=== PATIENT | female | born 1965 | race Caucasian/White ===

== ENCOUNTER 2017-01-29 07:50 | Day surgery (SDC) | payer BC ==
[~2017-01-29 07:50] MED LIST: ACETAMINOPHEN 1,000 MG/100 ML BTL IV ONE
[2017-01-29] MEDS ORDERED: ONDANSETRON HCL IV 4 MG/2 ML VIAL IVP ONE (14:00)
[2017-01-29] MEDS ORDERED: LIDOCAINE 2% MDV (20MG/ML) 20ML VIAL IV ONE (14:00)
[2017-01-29] MEDS ORDERED: MIDAZOLAM HCL 2MG/2ML VIAL IV ONE (14:00)
[2017-01-29] MEDS ORDERED: SEVOFLURANE 250 ML INH ONE (14:00)
[2017-01-29] MEDS ORDERED: ROPIVACAINE HCL (NAROPIN) /PF 5MG/ML 20ML VIAL IV ONE ×2 (14:00→14:07)
[2017-01-29] MEDS ORDERED: PROPOFOL 10 MG/ML VIAL IV ONE (14:00)
[2017-01-29] MEDS ORDERED: FENTANYL PF 100MCG/2ML VIAL IV ONE (14:00)
[2017-01-29] MEDS ORDERED: KETOROLAC 30 MG/ML VIAL IVP ONE (14:00)
--- NOTE | 2017-02-03 16:44 | Operative Note ---
DATE OF SURGERY: 01/29/2017 Surgeon: Keith Cheema D.O. REFERRING PHYSICIAN: Harpreet Brown D.O. PREOPERATIVE DIAGNOSES: 1. Carpal tunnel syndrome of the right wrist. 2. Trigger thumb right thumb. POSTOPERATIVE DIAGNOSES: 1. Carpal tunnel syndrome of the right wrist. 2. Trigger thumb right thumb. OPERATION: Decompression right median nerve at the wrist using 2.5 loupe magnification and tenotomy A1 michelet right thumb. PROCEDURE: This 51-year-old female was taken to the Operating Room, placed in the supine position on the operating room table. General anesthesia was induced and the right upper extremity was elevated. It was prepped with Hibiclens and draped in the usual sterile fashion. It was exsanguinated and the tourniquet inflated to 250 mmHg. Incision was made in the flexor crease of the MCP joint and dissected down through the skin and subcutaneous tissue. Hemostasis obtained with the electrocautery. The neurovascular bundles were protected. The proximal edge of the A1 michelet easily identified and it was split from its proximal to its distal margin under direct vision. The flexor pollicis longus did demonstrate some mild scuffing but the tendon obviously is still intact. Mild nodularity of the tendon also identified. Once it had been completely decompressed, the thumb was flexed and extended and no catching or locking was identified. The wound was irrigated with lactated Ringer solution and closed with interrupted 6- 0 Nylon suture. We then directed our attention to the carpal tunnel and an incision was made from the base of the webspace of the thumb to the flexor crease of the wrist following the hypothenar crease. Dissection carried down through the skin and subcutaneous tissue. Hemostasis was obtained with the electrocautery. The palmar fascia was divided in line with the skin incision. We then were able to visualize the flexor retinaculum. A hole was punctured in it and it was split to its proximal margin. With the contents of the carpal ligament under direct vision, the transverse carpal ligament was transected along its ulnar border and the radial flap was raised to exposure the entire median nerve under the transverse carpal ligament. Recurrent motor branch of the median nerve was identified and found to be normal. The wound was then irrigated and the tourniquet released and hemostasis obtained with the electrocautery, and the wound closed with interrupted 6-0 Nylon suture. Sterile dressings were applied and the patient was taken to the Recovery Room in satisfactory condition. GROSS PATHOLOGY: This patient demonstrated mild hyperemia and hourglass deformity of the median nerve. There was mild scuffing of the flexor pollicis longus tendon, mild nodularity also being identified. MTDD
== END 2017-01-29 10:55 | disposition home or self-care (01) ==
LOC: SUR 07:50
PROVIDERS: ATTEND Orthopaedic Surgery
DX: G56.01 Carpal tunnel syndrome, right upper limb (principal); M65.311 Trigger thumb, right thumb; I10 Essential (primary) hypertension
CPT/HCPCS: 26055; 64721; 01810; 64450; J1885; J2405; J3010; J2795; 01992; 76942

== ENCOUNTER 2017-07-31 12:17 | Emergency (ER) | payer BC ==
[2017-07-31] MEDS ORDERED: PROPARACAINE HCL OPTH 15ML BTL OPTH ONE (12:21)
--- NOTE | 2017-07-31 12:28 | Emergency Department Record ---
History of Present Illness - General Chief complaint: Eye Problem Stated complaint: SOMETHING IN RIGHT EYE Time Seen by Provider: 07/31/17 12:28 Source: Patient Mode of Arrival: Ambulatory Limitations: No limitations - History of Present Illness Initial comments: The patient is here due to feeling pain in her R eye for about 5 hours. The onset was this AM when she noticed a feeling of a FB sensation to the R eye. The pain progressively got worse during the day and now is much worse with blinking. She denies any trauma, injury, nasal drainage, recent illnesses, or contact lens use. She has been using drops and rubbing her eye a lot this AM. chief complaint: Eye pain Onset/Timin -: Hour(s) Onset Description: Sudden Location: Right eye Associated Symptoms: None Treatments Prior to Arrival: None - Related Data Visual acuity (L) = 20/: 50 Visual acuity (R) = 20/: 20 With correction: Yes Home Medications Medication Instructions Recorded Confirmed Last Taken Bupropion HCl [Wellbutrin Xl] 300 mg PO DAILY 07/31/17 07/31/17 07/30/17 Allergies Allergy/AdvReac Type Severity Reaction Status Date / Time meperidine Allergy Unknown Unverified 12/23/16 14:03 morphine Allergy Unknown Unverified 12/23/16 14:03 Travel Screening - Travel/Exposure Within Last 30 Days Have you traveled within the last 30 days?: No - Travel/Exposure Within Last Year Have you traveled outside the [place] in the last year?: No - Additonal Travel Details Have you been exposed to anyone with a communicable illness?: No - Travel Symptoms Symptom Screening: None Past Medical History - SOCIAL HISTORY Smoking Status: Never smoker Alcohol Use: None Drug Use: None - RESPIRATORY Hx Respiratory Disorders: No Comment:: STREP THROAT 3 WEEKS AGO - CARDIOVASCULAR Hx Hypertension: Yes (CONTROLLED WITH MEDS) - NEURO Hx Neuro Disorders: Yes Hx of Migraines: Yes (FOCAL BOTOX Q6/MO FOR RELIEF) - GI Hx GI Disorders: Yes Hx of Polyps: Yes (COLON BENIGN) - Hx Genitourinary Disorders: Yes Hx Kidney Stones: Yes - ENDOCRINE Hx Endocrine Disorders: Yes Hx Thyroid Disease: Yes (NON CA NODULES ON THYROID) - MUSCULOSKELETAL Hx Musculoskeletal Disorders: No - PSYCH Hx Psych Problems: Yes Hx Depression: Yes (MILD CONTROLLED WITH MED) - HEMATOLOGY/ONCOLOGY Hx Hematology/Oncology Disorders: No Family Medical History Any Significant Family History?: No Physical Exam - General General Appearance: Alert, Cooperative, No acute distress - Head Head exam: Atraumatic, Normocephalic, Normal inspection - Eye Eye exam: Normal appearance, PERRL, EOMI, Other (There was a punctate FB under the R eyelid that was easily removed on lid eversion.). negative: Conjunctival injection (There is no obvious R eye irritation.), Periorbital swelling, Periorbital tenderness, Scleral icterus Pupils: Normal accommodation, Other (There is a very small superficial R corneal abrasion in the central visual axis on Flourescein staining.) With correction: Yes Image of Eyes: 1 - small superficial abrasion. Course Vital Signs 07/31/17 12:20 Temperature 97.4 F L Pulse Rate 74 Respiratory 16 Rate Blood Pressure 128/77 Pulse Ox 98 - Reevaluation(s) Reevaluation #1: The patient was doing very well at the time of discharge. We did observe her in the ER for 30 minutes when her alcaine drops did wear off and her R eye pain was dramatically improved. 07/31/17 13:25 Disposition Disposition: Discharge Clinical Impression: Corneal abrasion Qualifiers: Encounter type: initial encounter Laterality: right Qualified Code(s): S05.01XA - Injury of conjunctiva and corneal abrasion without foreign body, right eye, initial encounter Disposition: Home, Self-Care Condition: (1) Good Instructions: Corneal Abrasion (ED) Additional Instructions: Please use the Emycin eye ointment 4 times a day for 3 days. Return to the ER for any worsening or changing symptoms or pain. Forms: Patient Portal Access Time of Disposition: 13:10 Quality - Quality Measures Quality Measures: N/A - Blood Pressure Screening View Details: Yes Does Patient Have Any of the Following: No Blood Pressure Classification: Pre-Hypertensive BP Reading Systolic Measurement: 136 Diastolic Measurement: 83 Screening for High Blood Pressure: < Pre-Hypertensive BP, F/U Documented > [ [id number]] Pre-Hypertensive Follow-up Interventions: Referral to alternative/primary care provider.
[2017-07-31] MEDS ORDERED: ERYTHROMYCIN OPTH OINT 3.5GM OPTH ONE (12:38)
== END 2017-07-31 13:15 | disposition home or self-care (01) ==
LOC: ER 12:17
DX: S05.01XA Injury of conjunctiva and corneal abrasion without foreign body, right eye, initial encounter (principal); S00.251A Superficial foreign body of right eyelid and periocular area, initial encounter; W22.8XXA Striking against or struck by other objects, initial encounter
CPT/HCPCS: 65205; 99283

== ENCOUNTER 2018-01-01 06:32 | Day surgery (SDC) | payer BC ==
[2018-01-01] MEDS ORDERED: PROPOFOL 10 MG/ML VIAL IV ONE (06:33)
[2018-01-01] MEDS ORDERED: LIDOCAINE 2% MDV (20MG/ML) 20ML VIAL IV ONE (06:33)
[2018-01-01] MEDS ORDERED: MIDAZOLAM HCL 2MG/2ML VIAL IV ONE (06:33)
--- NOTE | 2018-01-04 12:21 | Operative Note ---
DATE OF SURGERY: 01/01/2018 SURGEON: Seth Reyna MD OPERATION: COLONOSCOPY. INDICATIONS: This is a 52-year-old female with history of suboptimal bowel preparation who presented for colonoscopy. POSTOPERATIVE DIAGNOSIS: Normal colon. ANESTHESIA: Sedation is per Anesthesia. Pulse oximetry was monitored throughout the procedure to maintain O2 saturation of 90% or greater. Supplemental oxygen was administered via nasal cannula. Cardiac and vital signs were monitored throughout the duration of the procedure, and they were stable. The procedure of colonoscopy and risks and alternatives of the procedure, including the risk of bleeding and perforation, among others, were explained to the patient who voiced understanding and agreed to have the procedure done. Physical examination was performed, and the patient was found stable for sedation. PROCEDURE: The patient was placed in the left lateral position. Sedation was initiated. A digital rectal exam was performed and showed some mild external hemorrhoids with no palpable rectal masses. An Olympus PCF-180AL colonoscope was then inserted into the rectum under direct visualization. It was advanced to the cecum without difficulty. The ileocecal valve and appendiceal orifice were identified and photographed. The colonic mucosa was carefully examined upon introduction of the colonoscope. The bowel preparation was fair. The colonoscope was then withdrawn while carefully examining the colonic mucosal surfaces. No lesions were noted. In the rectum, retroflexion was performed and grade 1 internal hemorrhoids were noted. The colonoscope was then withdrawn and the procedure was terminated. The patient tolerated the procedure well without any immediate complications. She remained with stable vital signs and was transferred to the recovery room. RECOMMENDATIONS: 1. The patient should be on a high-fiber diet. 2. The patient is to have a repeat colonoscopy for screening in 10 years. Thank you for allowing me to participate in the care of your patient. CC: DO HOWIE Oshea
== END 2018-01-01 08:40 | disposition home or self-care (01) ==
LOC: HOP 06:32
PROVIDERS: ATTEND Internal Medicine Gastroenterology
DX: Z12.11 Encounter for screening for malignant neoplasm of colon (principal); I10 Essential (primary) hypertension
CPT/HCPCS: 00812; G0121

== ENCOUNTER 2018-02-04 06:50 | Day surgery (SDC) | payer BC ==
[2018-02-04] MEDS ORDERED: FENTANYL PF 100MCG/2ML VIAL IV ONE (06:51)
[2018-02-04] MEDS ORDERED: LIDOCAINE 2% MDV (20MG/ML) 20ML VIAL IV ONE (06:51)
[2018-02-04] MEDS ORDERED: BETAMETHASONE 6 MG/1 ML 5ML VIAL IM ONE (06:51)
[2018-02-04] MEDS ORDERED: BUPIVACAINE 0.25% W/EPI MPF 30ML VIAL IVP ONE (06:51)
[2018-02-04] MEDS ORDERED: HYDROCODONE/APAP 7.5/325MG TABLET PO ONE (06:51)
[2018-02-04] MEDS ORDERED: PROPOFOL 10 MG/ML VIAL IV ONE (06:51)
--- NOTE | 2018-02-05 09:30 | Operative Note ---
DATE OF SURGERY: 02/04/2018 Surgeon: Keith Cheema DO PREOPERATIVE DIAGNOSIS: Adhesive capsulitis of the right shoulder. POSTOPERATIVE DIAGNOSIS: Adhesive capsulitis of the right shoulder. OPERATION: Manipulation under anesthesia, right shoulder. DESCRIPTION OF PROCEDURE: This 52-year-old female was taken to the operating room and placed in the supine position on the operating room table. General anesthesia was induced. The right shoulder was taken through range of motion and found to be markedly restricted in abduction to about 45-50 degrees, forward flexion to approximately 90 degrees, external rotation to approximately 45 degrees. Then with the glenohumeral joint stabilized, the shoulder glenohumeral joint was taken through range of motion breaking loose cicatrix to abduction to approximately 130 degrees full, 180 degrees of forward flexion, internal rotation to approximately 110 degrees, external rotation to 110-120 degrees, full crossover and full extension was identified disrupting cicatrix in the joint at the extremes of motion. The shoulder was then again taken through range of motion and found to be stable with full motion with no restriction. The anterior aspect of the shoulder was prepped with alcohol and a 22-juancarlos spinal needle was easily passed into the glenohumeral joint and injected with 2 mL of Celestone Soluspan, 4 mL of 0.25% Marcaine with epinephrine. Sterile bandage was applied, and she was taken to the recovery room in satisfactory condition. GROSS PATHOLOGY: This patient demonstrated significant restriction of range of motion secondary to the adhesive capsulitis as described above but manipulation to full range of motion was accomplished as described. CC: DO HOWIE Oshea
== END 2018-02-04 08:40 | disposition home or self-care (01) ==
LOC: SUR 06:50
PROVIDERS: ATTEND Orthopaedic Surgery
DX: M75.01 Adhesive capsulitis of right shoulder (principal); I10 Essential (primary) hypertension; G43.909 Migraine, unspecified, not intractable, without status migrainosus
CPT/HCPCS: 23700; 01620; J3010

== ENCOUNTER 2018-05-18 10:07 | Emergency (ER) | payer BC ==
[2018-05-18] MEDS ORDERED: METHYLPREDNISOLONE PF 125MG/VIAL IVP ONE (10:14)
[2018-05-18] MEDS ORDERED: 0.9 % SODIUM CHLORIDE 1000ML 1,000 ML IV PRN (10:14)
[2018-05-18] MEDS ORDERED: IPRATROPIUM/ALBUTEROL (0.5MG/3MG) NEB INH ONE (10:14)
--- NOTE | 2018-05-18 10:22 | Emergency Department Record ---
History of Present Illness - General Chief Complaint: Dizziness Stated Complaint: DIZZINESS,FALL Time Seen by Provider: 05/18/18 10:14 Source: Patient Mode of Arrival: Ambulatory Limitations: No limitations - History of Present Illness Initial Comments: Pt relates 2 days of cough with feeling ill. No measured fever. Pt cough is loose but non productive. Pt relates feeling lightheaded with standing but states she is eating and drinking fluids as normal. Feels tight with cough, no AP, diarrhea. Onset/Timin -: Days(s) Description: Lightheadedness History of Same: No History of Trauma: No Improves With: Nothing Worsens With: Nothing Associated Symptoms: Cough, Malaise, Shortness of breath, Weakness - [place] Coma Scale Eye Response: (4) Open spontaneously Motor Response: (6) Obeys commands Verbal Response: (5) Oriented Debi Total: 15 - Related Data Previous Rx's Medication Instructions Recorded Albuterol Sulfate 1.25 mg IH Q6HR 5 Days vial.neb 05/18/18 Azithromycin [Zithromax] 250 mg PO DAILY 4 Days #4 tab 05/18/18 Prednisone [Prednisone 20Mg] 40 mg PO DAILY #8 tab 05/18/18 Allergies Allergy/AdvReac Type Severity Reaction Status Date / Time meperidine Allergy Unknown PT UNSURE Verified 05/18/18 10:28 OF REACTION morphine Allergy Unknown PT UNSURE Verified 05/18/18 10:28 OF REACTION Travel Screening - Travel/Exposure Within Last 30 Days Have you traveled within the last 30 days?: No Review of Systems Constitutional: Reports: Malaise, Weakness. Denies: Chills, Fever Eyes: Denies: Photophobia, Vision change ENT: Reports: Congestion, Ear pain. Denies: Epistaxis, Hearing loss Respiratory: Reports: Cough, Dyspnea. Denies: Hemoptysis Cardiovascular: Denies: Arrhythmia, Chest pain, Palpitations Endocrine: Reports: Fatigue Gastrointestinal: Denies: Abdominal pain, Constipation, Diarrhea, Nausea, Vomiting Genitourinary: Denies: Dysuria Musculoskeletal: Denies: Arthralgia Skin: Denies: Bruising Neurological: Denies: Abnormal gait, Tingling Psychiatric: Denies: Anxiety Hematological/Lymphatic: Denies: Anemia Past Medical History - SOCIAL HISTORY Smoking Status: Never smoker - RESPIRATORY Comment:: . - CARDIOVASCULAR Hx Cardio Disorders: Yes Hx Hypertension: Yes (CONTROLLED WITH MEDS) - NEURO Hx Neuro Disorders: Yes Hx of Migraines: Yes (FOCAL BOTOX Q6/MO FOR RELIEF) - GI Hx GI Disorders: Yes Hx of Polyps: Yes (COLON BENIGN) - Hx Genitourinary Disorders: Yes Hx Kidney Stones: Yes - ENDOCRINE Hx Endocrine Disorders: Yes Comment:: NON CA NODULES ON THYROID - MUSCULOSKELETAL Hx Musculoskeletal Disorders: No - PSYCH Hx Psych Problems: Yes Hx Depression: Yes (MILD CONTROLLED WITH MED) - HEMATOLOGY/ONCOLOGY Hx Hematology/Oncology Disorders: No Physical Exam - General General Appearance: Alert, Oriented x3, Cooperative, Moderate distress - Head Head exam: Atraumatic - Eye Eye exam: PERRL - ENT ENT exam: Mucous membranes moist, Normal external ear exam, Normal orophraynx ( slight retraction bilateral TMs) - Neck Neck exam: Normal inspection. negative: Lymphadenopathy - Respiratory Respiratory exam: Rhonchi, Wheezes - Cardiovascular Cardiovascular Exam: Normal rhythm, Normal heart sounds - GI/Abdominal GI/Abdominal exam: Soft, Normal bowel sounds. negative: Tenderness - Extremities Extremities exam: Normal inspection. negative: Calf tenderness - Back Back exam: Reports: Normal inspection - Neurological Neurological exam: Alert, Normal gait, Oriented X3 - Psychiatric Psychiatric exam: Normal affect, Normal mood - Skin Skin exam: Normal color Course Vital Signs 05/18/18 10:09 Temperature 98.7 F Pulse Rate 97 H Respiratory 24 Rate Blood Pressure 126/95 Pulse Ox 100 - Reevaluation(s) Reevaluation #1: 05/18/18 10:23 NMT and XRays with lab. Procedures - EKG Initial Date: 05/18/18 Time: 10:35 EKG: Normal EKG (SR 90 ) Medical Decision Making - Lab Data Result diagrams: 05/18/18 10:27 05/18/18 10:27 Disposition Disposition: Discharge Clinical Impression: Bronchitis, Cough, Otalgia of left ear Disposition: Home, Self-Care Return To Work/School Note Provided: No Condition: (2) Stable Instructions: Acute Bronchitis (ED) Additional Instructions: Use inhaler 4 times a day for cough. Take Antibiotic and steroids as instructed. Family doctor recheck in 2 days. Return to the ER if any concerns or worse. Prescriptions: Albuterol Sulfate 1.25 mg IH Q6HR 5 Days vial.neb Azithromycin [Zithromax] 250 mg PO DAILY 4 Days #4 tab Prednisone [Prednisone 20Mg] 40 mg PO DAILY #8 tab Forms: Patient Portal Access Quality - Quality Measures Quality Measures: Adult Bronchitis (18-64yr) - Adult Bronchitis Quality Measure: Measure #116: Avoidance of ABX w/Adult Bronchitis ICD10 Codes Entered: Yes Is patient being admitted: Yes Avoidance of ABX w/Bronchitis: ABX prescribed or dispensed Medical Reason For Rx: Bacterial infection - Blood Pressure Screening Does Patient Have Any of the Following: No Blood Pressure Classification: Hypertensive Reading Systolic Measurement: 126 Diastolic Measurement: 95 Screening for High Blood Pressure: Patient Exclusion, Hx of HTN [G9744]
[2018-05-18 10:39] LABS: BASO % 0.3 % (0-6); EOS % 1.4 % (0-6); HEMATOCRIT 43.5 % (35.0-47.0); HEMOGLOBIN 13.9 gm/dl (11.6-16.0); LYMPH % 21.1 % (16-45); MEAN CELL VOLUME 87.7 fl (81-97); MEAN PLATELET VOLUME 9.6 fl (7.4-10.4); MONO % 8.2 % (0-9); PLATELET COUNT 254 K/uL (130-400); RED BLOOD COUNT 4.96 M/uL (3.80-5.40); RED CELL DISTRIBUTION WIDTH 14.3 % (11.5-14.5); WHITE BLOOD COUNT W/O DIFF 6.5 K/uL (4.2-12.2)
[2018-05-18 10:48] LABS: BLOOD UREA NITROGEN 11 mg/dL (6-20); CREATININE 0.8 mg/dL (0.5-0.9); EST GLOMERULAR FILTRATION RATE > 60 mL/min
[2018-05-18 10:51] LABS: GLUCOSE,RANDOM 94 mg/dL (74-109)
[2018-05-18] MEDS ORDERED: AZITHROMYCIN 500 MG in 0.9 % SODIUM CHLORIDE 250ML 250 ML IVPB ONE (11:05)
--- NOTE | 2018-05-18 11:17 | RADIOLOGY REPORT ---
EXAM: CHEST, TWO VIEWS HISTORY: PRODUCTIVE COUGH AND CONGESTION. TECHNIQUE: PA and lateral views of the chest were obtained. Comparison: No prior chest x-ray with which to compare. FINDINGS: The heart size is normal. The lungs appear expanded with no acute infiltrate identified. No pleural effusion or pneumothorax evident. IMPRESSION: THE CHEST APPEARS NEGATIVE WITH NO DEFINITE ACUTE INFILTRATE IDENTIFIED. JOB NUMBER: [id number] MTDD
[2018-05-18] MEDS ORDERED: ACETAMINOPHEN 500 MG TABLET PO ONE (11:57)
[2018-05-18] MEDS ORDERED: PROMETHAZINE W/CODEINE 10ML UD PO ONE (12:09)
== END 2018-05-18 12:40 | disposition home or self-care (01) ==
LOC: ER 10:07
DX: J20.9 Acute bronchitis, unspecified (principal); R06.02 Shortness of breath; H92.02 Otalgia, left ear; R42 Dizziness and giddiness; R53.1 Weakness; I10 Essential (primary) hypertension
CPT/HCPCS: 71046; 80048; 85025; 93005; 93010; 94640; 96361; 96365; 96375; 99284; J0456; J2930; J7050